=== PATIENT | female | born 1955 | race Caucasian/White ===

== ENCOUNTER → 2020-04-07 12:54 | Outpatient (BNVA) | payer MEDICARE, SELFPAY | PROVIDERS: Family Provider Family Medicine; PCP Family Medicine; Visit Provider Internal Medicine | DX: M32.9 Systemic lupus erythematosus, unspecified (principal); G43.909 Migraine, unspecified, not intractable, without status migrainosus; M35.00 Sjogren syndrome, unspecified; Z79.899 Other long term (current) drug therapy | CPT/HCPCS: 99213 ==

== ENCOUNTER → 2020-11-08 13:23 | Outpatient (BNVA) | payer MEDICARE, SELFPAY | PROVIDERS: Family Provider Family Medicine; PCP Family Medicine; Visit Provider Internal Medicine | DX: M32.9 Systemic lupus erythematosus, unspecified (principal); M35.00 Sjogren syndrome, unspecified; Z79.899 Other long term (current) drug therapy | CPT/HCPCS: 36415; 80053; 85025; 85651; 86140; 86160; 93005; 99214 ==

== ENCOUNTER 2020-11-08 14:52 | Outpatient (CLI) | payer MEDICARE, SELFPAY ==
[2020-11-08 15:10] LABS: Basophils % 0.6 %; Eosinophils # 0.1 10^3/uL (0.0-0.8); Eosinophils % 2.1 %; Hemoglobin 13.6 g/dL (11.5-15.3); Lymphocytes # 1.6 10^3/uL (0.8-4.8); Mean Corpuscular HGB Conc 32.4 g/dL (30.0-36.0); Mean Corpuscular Hemoglobin 28.8 pg (28.0-34.0); Mean Platelet Volume 10.4 fL (7.4-10.4); Monocytes # 0.5 10^3/uL (0.2-0.9); Monocytes % 9.5 %; Neutrophils # 3.14 10^3/uL (1.8-7.7); Neutrophils % 58.6 %; Nucleated Red Blood Cells % 0 %; Platelet Count 252 10^3/cmm (130-400); Red Blood Count 4.72 10^6/uL (4.1-5.3); Red Cell Distribution Width 12.1 % (12.1-15.1); White Blood Count 5.4 10^3/uL (4.0-10.0)
--- NOTE | 2020-11-08 15:25 | ECG_ITS ---
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 Measurements Intervals Elkin Rate: 70 P: 68 RI: 143 QRS: -14 QRSD: 85 T: 66 QT: 390 QTc: 423 Interpretive Statements SINUS RHYTHM LOW QRS VOLTAGE IN PRECORDIAL LEADS [QRS DEFLECTION < 1.0 mV IN CHEST LEADS] MODERATE ST DEPRESSION [0.05+ mV ST DEPRESSION] Compared to ECG 01/24/2019 20:56:02 Low QRS voltage now present ST (T wave) deviation now present Sinus bradycardia no longer present Electronically Signed On 11-09-2020 6:08:17 VIDEO GAME DEVELOPER by Katarzyna Fairchild M.D. [email or web address]/[id number] mi
[2020-11-08 15:33] LABS: Alanine Aminotransferase 23 U/L (0-33); Albumin Level 4.5 g/dL (3.5-5.2); Alkaline Phosphatase 101 IU/L (35-105); Anion Gap 15.8 (5-19); Aspartate Amino Transferase 19 U/L (0-32); Blood Urea Nitrogen 13 mg/dL (8-23); C Reactive Protein 2.2 mg/L (0.0-4.9); Carbon Dioxide 28 mmol/L (22-29); Chloride 101 mmol/L (98-107); Complement C3 144 mg/dL (90-180); Globulin 3.1 g/dL (1.3-4.6); Glucose 97 mg/dL (65-115); Osmolality Calculated 292 mOsm/kg (285-295); Potassium 3.8 mmol/L (3.5-5.1); Sodium 141 mmol/L (136-145); Total Bilirubin 0.4 mg/dL (0.15-1.2); Total Protein 7.6 g/dL (6.6-8.7)
[2020-11-08 16:14] LABS: Erythrocyte Sedimentation Rate 24 mm/hr (0-15)
== END 2020-11-08 14:53 | disposition home or self-care (01) ==
PROVIDERS: PCP Family Medicine; Visit Provider Internal Medicine
DX: M35.00 Sjogren syndrome, unspecified (principal)
CPT/HCPCS: 36415; 80053; 85025; 85651; 86140; 86160; 93005

== ENCOUNTER 2021-01-26 12:41 | Outpatient (CLI) | payer MEDICARE, SELFPAY ==
[2021-01-26 12:51] VITALS: BMI 24.6
--- NOTE | 2021-01-26 12:52 | ECG_ITS ---
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 Interpretive Statements NAME OF STUDY: DOBUTAMINE STRESS ECHOCARDIOGRAM INDICATION: Abnormal EKG PROCEDURE: At the baseline, the blood pressure was 145/78 mm Hg with a heart rate of 57 bpm. The electrocardiogram showed sinus bradcardia, normal axis and non specific ST depression. The dobutamine was infused over a period of 10 minutes and 48 seconds. The maximum heart rate obtained was 146 (94 % of the maximum predicted heart rate). The blood pressure at that time was 97/61 mmHg. The patient did not have any chest pain. 1/2-[address] depression noted in infero-lateral genao with the dobutamine infusion.The physical examination remained unchanged. No arrhythmias were seen on the monitor. During the recovery phase, the patient did not have any specific symptoms. The blood pressure at the end of the recovery phase was 123/88 mm Hg with a heart rate of 76 beats per minute. CONCLUSION: 1. Equivocal EKG changes with dobutamine infusion given baseline ST changes. 2. Baseline hypertension with normal response to dobutamine infusion. 3. Functional capacity could not be assessed. 4. Echocardiographic portion of the study to be reported separately. Electronically Signed On 01-30-2021 23:06:52 CDT by Katarzyna Fairchild M.D. [id number]
--- NOTE | 2021-01-26 13:03 | USCV_ITS ---
Daija Long Age: 65 Gender: F : 1955 Exam Date: 01/26/2021 13:31 Ordering Phys: Katarzyna Fairchild MD ([email or web address]) Technologist: Exam [place] [facility] [place]: abnormal ekg Rhythm: Sinus Patient History: Cardiac Medications: Medications in past 24 hours: Contrast: Stress Results Protocol: Dayne Total dose(mL): Exercise Duration (min:sec): 10:48 METS: Resting HR: 60 Resting BP: 145 / 78 Peak HR: 146 Peak BP: 187 / 100 Max Predicted HR: 155 94 % Max Predicted HR Target HR: 132 Double Product: [id number] Stress Summary: The patient's target heart rate was achieved BP Response: Normal Reason for Termination: Test terminated after reaching target heart rate (85% max predicted) Cardiac Symptoms: None ECG Analysis Resting ECG: Stress ECG: Arrhythmia: MEASUREMENTS (Male/Female) Normal Values FINDINGS 1. At the baseline, the patient's blood pressure was 145/78 mm Hg with a heart rate of 60 beats per minute. 2. The Dobutamine was infused over 10 minutes and 48 seconds. The maximum heart rate obtained was 146 beats per minute. The patient attained 94 % of the maximum predicted heart rate. The blood pressure at the end of the infusion was 187/100 mmHg. Patient did not have any chest pain or any significant electrocardiogram changes with the Dobutamine infusion. The physical examination remained unchanged. No arrhythmias were seen on the monitor. 3. At the baseline, the patient's echocardiogram revealed normal cardiac chamber sizes with normal LV ejection fraction of 65%. Segmental wall motion analysis revealed no regional wall motion abnormality. There were no intracardiac masses. No significant pericardial effusion. Aortic root appears to be upper limits of normal size. 4. With the low and the peak Dobutamine infusion, there was good augmentation of all the segments with no Dobutamine-induced wall motion abnormalities. 5. During the recovery phase, the patient did not have any symptoms or any EKG changes. 6. The echocardiogram during the recovery phase also did not reveal any new changes. CONCLUSIONS 1. Equivocal electrocardiogram response to Dobutamine infusion given baseline changes. 2. Normal echocardiographic response to Dobutamine infusion. 3. No Dobutamine-induced chest pain or cardiac arrhythmia. 4. Clinical correlation is recommended. Katarzyna Fairchild MD (Electronically Signed) Final Date: 30 Jan 2021 23:08 S
[2021-01-26] MEDS: DOBUTtamine 200 MG in sodium chloride 0.9% 34 ML 10 MG IV (13:32)
[2021-01-26] MEDS: atropine 0.1 mg/mL Syr 10 mL 0.5 MG IVP (13:43)
[2021-01-26] MEDS: metoprolol tartrate 1 mg/1 mL SDV 5 mL 5 MG IVP (13:48)
[2021-01-26 13:56] VITALS: BP 123/88; PULSE 77
== END 2021-01-26 12:42 | disposition home or self-care (01) ==
PROVIDERS: Visit Provider Internal Medicine Cardiovascular Disease
DX: R94.31 Abnormal electrocardiogram [ECG] [EKG] (principal); I10 Essential (primary) hypertension
CPT/HCPCS: 93017; 93350; J0461; J1250; J3490; J7050

== ENCOUNTER 2021-02-07 11:28 | Outpatient (CLI) | payer MEDICARE, SELFPAY ==
--- NOTE | 2021-02-07 11:45 | USCV_ITS ---
Mercedes Daija Age: 65 Gender: F : 1955 Exam Date: 02/07/2021 11:56 Ordering Phys: Katarzyna Fairchild MD ([email or web address]) Technologist: Exam Location: [facility] [place] Indication: CHEST PAIN BP: 127 / 80 HR: 61 Rhythm: Sinus Technical Quality: Adequate MEASUREMENTS (Male / Female) Normal Values 2D ECHO LV Diastolic Diameter PLAX 3.3 cm 4.2 - 5.9 / 3.9 - 5.3 cm LV Systolic Diameter PLAX 1.9 cm IVS Diastolic Thickness 0.8 cm 0.6 - 1.0 / 0.6 - 0.9 cm IVS Systolic Thickness 1.4 cm LVPW Diastolic Thickness 0.9 cm 0.6 - 1.0 / 0.6 - 0.9 cm LVPW Systolic Thickness 1.2 cm LVOT Diameter 2.0 cm LV Ejection Fraction 2D Teich 69.4 % LV Ejection Fraction MOD 2C 73.6 % LV Ejection Fraction 2C AL 73.7 % LA Diameter 3.1 cm LA Width 3.1 cm LA Height 4.5 cm RA Width 3.1 cm RA Height 3.3 cm Aorta at Sinotubular Diameter 2.1 cm M-MODE LV Diastolic Diameter MM 3.9 cm 4.2 - 5.9 / 3.9 - 5.3 cm LV Systolic Diameter MM 3.2 cm LV Ejection Fraction MM Teich 35.6 % IVS Diastolic Thickness MM 1.2 cm 0.6 - 1.0 / 0.6 - 0.9 cm IVS Systolic Thickness MM 1.6 cm LVPW Diastolic Thickness MM 1.1 cm 0.6 - 1.0 / 0.6 - 0.9 cm LVPW Systolic Thickness MM 1.5 cm RV Diastolic Diameter MM 1.8 cm Aortic Annulus Diameter 2.9 cm LA Ao Ratio MM 1.1 MV E Point Septal Separation 0.7 cm DOPPLER AV Peak Velocity 84.0 cm/s LVOT Peak Velocity 71.0 cm/s AV Area Cont Eq vti 3.2 cm squared AV Area Cont Eq pk 2.6 cm squared MV Area PHT 4.0 cm squared Mitral E to A Ratio 1.0 MV E' Velocity 33.4 cm/s Mitral E to MV E' Ratio 6.7 Mitral E to LV E' Lateral Ratio 6.2 Mitral E to LV E' Septal Ratio 7.2 TR Peak Velocity 206.0 cm/s TR Peak Gradient 17.0 mmHg TV Peak E Velocity 76.0 cm/s Right Atrial Pressure 3.0 mmHg Pulmonary Artery Systolic Pressu 20.0 mmHg FINDINGS Left Ventricle Normal left ventricular size, systolic function and wall thickness, with no regional wall motion abnormalities. Left ventricular ejection fraction is estimated at 70 %. Normal diastolic function. Right Ventricle Normal right ventricular size and systolic function. Right ventricular systolic pressure 20 mmHg. Right Atrium Normal right atrial size. Left Atrium Normal left atrial size. Mitral Valve Structurally normal mitral valve. No mitral valve stenosis. Trace mitral valve regurgitation. Aortic Valve Structurally normal trileaflet aortic valve. No aortic valve stenosis. No aortic valve regurgitation. Tricuspid Valve Structurally normal tricuspid valve. Trace tricuspid valve regurgitation. Pulmonic Valve Pulmonic valve not well visualized. No pulmonary valve stenosis. No pulmonary valve regurgitation. Pericardium No pericardial effusion. Aorta Normal size aortic root and proximal ascending aorta. Normal sized inferior vena cava. CONCLUSIONS 1. Normal left ventricular size, systolic function and wall thickness, with no regional wall motion abnormalities. Left ventricular ejection fraction is estimated at 70 %. Normal diastolic function. 2. No significant valvular abnormality. 3. Normal pulmonary artery pressure. 4. No pericardial effusion. 5. No prior similar studies to compare. Katarzyna Fairchild MD (Electronically Signed) Final Date: 13 Feb 2021 14:20 S
== END 2021-02-07 11:29 | disposition home or self-care (01) ==
LOC: US 11:29
PROVIDERS: Visit Provider Internal Medicine Cardiovascular Disease
DX: I08.1 Rheumatic disorders of both mitral and tricuspid valves (principal); R94.31 Abnormal electrocardiogram [ECG] [EKG]
CPT/HCPCS: 93306

== ENCOUNTER 2021-04-18 14:41 | Outpatient (CLI) | payer MEDICARE, SELFPAY ==
--- NOTE | 2021-04-18 15:00 | USCV_ITS ---
Daija Long Age: 65 Gender: F : 1955 Exam Date: 04/18/2021 15:00 Ordering Phys: Katarzyna Fairchild MD ([email or web address]) Technologist: Kaley Castañeda [place] [facility] [place] FACIAL DROOPING Risk Factors: Previous Vascular Surgery: Right Brachial BP: / Left Brachial BP: / Right Left Velocity (cm/s) Spectral Plaque Velocity (cm/s) Spectral Plaque Syst/Diast Broadening Syst/Diast Broadening 146.90/20.50 Prox CCA 118.00/ 33.10 100.00/28.20 Mid CCA 116.90/ 36.40 103.40/37.60 Distal CCA 108.10/ 35.30 77.80/ 28.20 Prox ICA 51.30 / 17.10 109.10/47.30 Mid ICA 77.80 / 30.80 72.40/ 29.30 Distal ICA 80.60 / 37.70 117.00 ECA 146.00 0.74 ICA/CCA 0.68 Antegrade Vertebral Antegrade 41.00/ 15.40 cm/s 54.40/ 22.50 cm/s Tri Subclavian Tri 88.20 79.20 CONCLUSIONS Right ICA stenosis <50%. Left ICA stenosis <50%. Normal antegrade Doppler flow noted in the right vertebral artery. Normal antegrade Doppler flow noted in the left vertebral artery. Bi Holliday MD (Electronically Signed) Final Date: 18 April 2021 17:20 S
== END 2021-04-18 14:42 | disposition home or self-care (01) ==
LOC: RAD 14:46
PROVIDERS: PCP Family Medicine; Visit Provider Internal Medicine Cardiovascular Disease
DX: I65.23 Occlusion and stenosis of bilateral carotid arteries (principal); M32.9 Systemic lupus erythematosus, unspecified; M35.00 Sjogren syndrome, unspecified; R29.810 Facial weakness; Z79.899 Other long term (current) drug therapy; R53.83 Other fatigue
CPT/HCPCS: 93880; 99213; 99214

== ENCOUNTER 2021-05-11 09:21 | Outpatient (CLI) | payer MEDICARE, SELFPAY ==
--- NOTE | 2021-05-11 09:24 | US_ITS ---
WS: [id number] ULTRASOUND ABDOMEN LIMITED CLINICAL INFORMATION: R10.11 - Right upper quadrant pain COMPARISON: None. FINDINGS: Liver Size: Normal. Craniocaudal length: 12.6 cm. Echogenicity: Normal. Surface nodularity: None. Mass (size and location): None. Bile ducts Intrahepatic ducts: Normal. Common bile duct diameter: 0.29 cm. Gallbladder Normal. Gallstones: None. Gallbladder sludge: None. Gallbladder wall thickening: None. Pericholecystic fluid: None. Sonographic Dennison sign: Absent. Pancreas Normal as visualized. Right kidney: Normal. Hydronephrosis: None. Size: 10.5 cm x 4.0 cm x 3.8 cm. Abdominal aorta and IVC Visualized portions are normal. Ascites: None. US/US gall bladder [id number] IMPRESSION: Normal ultrasound
== END 2021-05-11 09:22 | disposition home or self-care (01) ==
LOC: US 09:22
PROVIDERS: PCP Family Medicine; Visit Provider Surgery
DX: R10.11 Right upper quadrant pain (principal)
CPT/HCPCS: 76705

== ENCOUNTER 2021-06-08 09:45 | Outpatient (CLI) | payer MEDICARE, SELFPAY ==
--- NOTE | 2021-06-08 10:00 | NM_ITS ---
WS: [id number] NUCLEAR MEDICINE HIDA SCAN CLINICAL INFORMATION: R10.9 - Unspecified abdominal pain TECHNIQUE: Following intravenous administration of 4.0 mCi of technetium 99m mebrofenin, images of th e abdomen were obtained over the course of 60 minutes. Next, gallbladder ejection fraction was determ ined by obtaining preprandial and one-hour postprandial images of the gallbladder following oral gely stion of Ensure. COMPARISON: Ultrasound May 11, 2021 FINDINGS: Normal hepatic uptake at 5 minutes. Hepatomegaly. Normal common bile duct activity. Gallbladder is vi sualized by 20 minutes. No evidence of acute cholecystitis. Normal small bowel activity. Gallbladder ejection fraction 79% within normal limits. No evidence of chronic cholecystitis. NM/NM hepatobiliary w phar* [id number] IMPRESSION: 1. No evidence of acute or chronic cholecystitis. 2. Gallbladder ejection fraction 79% within normal limits.
== END 2021-06-08 09:46 | disposition home or self-care (01) ==
LOC: NM 09:47
PROVIDERS: PCP Family Medicine; Visit Provider Surgery
DX: R10.9 Unspecified abdominal pain (principal)
CPT/HCPCS: 78227; A9537

== ENCOUNTER 2021-06-22 09:20 | Day surgery (SDC) | payer MEDICARE, SELFPAY ==
[2021-06-20 13:37] VITALS: BMI 24.4
--- NOTE | 2021-06-22 09:58 | ANES.PREANE2 ---
Pre-Anesthetic Assessment Pre-Anesthetic Assessment: Height/Weight: Height 1.65 m Weight 66.678 kg Preop Diagnosis: Family history of colon cancer, bleeding per rectum Proposed Procedure: Operation Date: 06/22/21 11:00 Proposed Procedures p Colonoscopy 79194 z86.010(Bilateral) - Erik Knight MD Was Beta Mamta taken within 24 hours: N/A Was Clonidine taken within 24 hours: N/A Social: Social History: No alcohol and No tobacco Exam: Pre-Anes Outpt Exam: alert, oriented x 3, clear to auscultation bilaterally and regular rate & rhythm Airway: Submandibular: WNL Cervical ROM: WNL MP: 2 Dentition: Full GI: GI: GERD Metabolic: Metabolic: Hyperlipidemia Musc/skel: Comments: SLE/Schogren's Anesthetic Plan: ASA status: 2 Anesthesia: MAC Risk of > 500 ml blood loss (7ml/kg in children): No PFSH Anesthesia PFSH: Medical History (Updated 04/11/21 @ 07:37 by Mikki Mcknight DO) Family history of coronary artery disease in brother Fibromyalgia GERD (gastroesophageal reflux disease) Lupus Migraine Sjogrens syndrome Sjogrens syndrome Surgical History (Updated 04/08/21 @ 10:31 by Mikki Mcknight DO) History of colonoscopy with polypectomy Family History Mother Stroke Father CHF (congestive heart failure) Other CAD (coronary artery disease) Diabetes FH: CABG (coronary artery bypass surgery) Sjogrens syndrome Stented coronary artery Social History Smoking and tobacco status: never smoked Alcohol intake: never History of recent travel: No Data Anesthesia Cardiac Studies: No Data to Display
[2021-06-22 10:05] VITALS: BP 156/88; PULSE 64; RESP 18; TEMP 36.1; O2SAT 98
[2021-06-22] MEDS: sodium chloride 0.9% 1,000 ML 30 ML IV (10:13)
--- NOTE | 2021-06-22 10:43 | W.PM.OPSFHP ---
Same Day Surgery H&P Indication for Procedure/HPI DATE OF PROCEDURE: June 22, 2021 CHIEF COMPLAINT/INDICATIONFOR SURGICAL PROCEDURE: Bloating PREOP DIAGNOSIS: Family history of colon cancer, bleeding per rectum PLANNED PROCEDRUE: Operation Date: 06/22/21 11:00 Proposed Procedures p Colonoscopy [id number] z86.010(Bilateral) - Erik Knight MD This is a pleasant 65 years old female patient well-known to me from previous clinical encounter as she did undergo an EGD and colonoscopy back in 2019 that showed GERD, gastritis and normal colon. She reports that she has been having issues with her bowels in the form of bloating especially when she has greasy food and she reports that she had her brother with history of colon cancer at the age of 50. She comes today that she is concerned as she did encounter some blood in stool and also concerned that she may have an underlying hemorrhoids. 06/22/2021 Patient comes today for colonoscopy. ROS All systems have been reviewed negative except as per the above per problem list Medications/Allergies* Home Medications Medication Instructions Recorded Confirmed Type aspirin 81 mg tablet,delayed 81 mg PO DAILY 04/07/20 06/20/21 History release Allergies/Adverse Reactions Allergy/AdvReac Type Severity Reaction Status Date / Time Sulfa (Sulfonamide Allergy Unknown ALGY-Rash Verified 06/22/21 10:43 Antibiotics) Penicillins AdvReac Unknown ALGY-Rash Verified 06/22/21 10:43 Current Medications: Generic Name Dose Route Start Last Admin Trade Name Freq PRN Reason Stop Dose Admin Sodium Chloride 1,000 mls @ 30 mls/hr 06/22/21 09:45 06/22/21 10:13 Sodium Chloride 0.9% IV 06/23/21 09:44 30 mls/hr .Q24H LIAM Administration Pertinent History/Comorbid Conditions* Medical History (Updated 04/11/21 @ 07:37 by Mikki Mcknight DO) Family history of coronary artery disease in brother Fibromyalgia GERD (gastroesophageal reflux disease) Lupus Migraine Sjogrens syndrome Sjogrens syndrome Surgical History (Updated 04/08/21 @ 10:31 by Mikki Mcknight DO) History of colonoscopy with polypectomy Family History (Updated 12/30/20 @ 13:48 by Alicia Paez RN) Sjogrens syndrome Stented coronary artery Diabetes CAD (coronary artery disease) CHF (congestive heart failure) Father FH: CABG (coronary artery bypass surgery) Stroke Mother Social History Smoking and tobacco status: never smoked Alcohol intake: never History of recent travel: No Pertinent Exam Findings alert, oriented x 3, clear to auscultation bilaterally, regular rate & rhythm and procedure specific exam findings (Abdominal examination nontender nondistended soft) Recommendations Surgery/Procedure today (Colonoscopy with possible biopsy) Coding Level of Care Code Acute Parenting Skills Instructor for Shanta Quintero
[2021-06-22 11:28] VITALS: BP 100/64; PULSE 63; RESP 14; TEMP 36.3; O2SAT 97
[2021-06-22 11:37] VITALS: BP 95/63; PULSE 62; RESP 18; TEMP 36.5; O2SAT 94
--- NOTE | 2021-06-22 11:53 | ANE.PACU2 ---
Inpatient post-anesthesia follow up: Airway intact: Yes Vital signs: Temperature 97.7 F Pulse Rate 62 Respiratory Rate 18 Blood Pressure 95/63 Pulse Oximetry 94 Oxygen Delivery Me thod Room Air Oxygen Flow Rate Fraction of Inspir ed Oxygen Hydration adequate: Yes Mental status: Baseline
== END 2021-06-22 12:05 | disposition home or self-care (01) ==
PROVIDERS: PCP Family Medicine; Visit Provider Surgery
PROC: 0DJD8ZZ Inspection of Lower Intestinal Tract, Via Natural or Artificial Opening Endoscopic (ICD-10-PCS; CPT 45378; principal; 2021-06-22 11:00)
DX: K62.5 Hemorrhage of anus and rectum (principal); Z86.010 Personal history of colon polyps; R14.0 Abdominal distension (gaseous); M79.7 Fibromyalgia; K21.9 Gastro-esophageal reflux disease without esophagitis; M35.00 Sjogren syndrome, unspecified; Z82.49 Family history of ischemic heart disease and other diseases of the circulatory system; Z83.3 Family history of diabetes mellitus; E78.5 Hyperlipidemia, unspecified
CPT/HCPCS: 45378; 96360; 96361; J2704; J7030

== ENCOUNTER → 2022-05-31 10:36 | Outpatient (BNVA) | payer MEDICARE, SELFPAY | PROVIDERS: PCP Family Medicine; Visit Provider Surgery | DX: Z09 Encounter for follow-up examination after completed treatment for conditions other than malignant neoplasm (principal) | CPT/HCPCS: 99213 ==

== ENCOUNTER → 2023-02-07 15:38 | Outpatient (BNVA) | payer MEDICARE, SELFPAY | PROVIDERS: PCP Family Medicine; Visit Provider Internal Medicine | DX: R53.83 Other fatigue (principal); Z79.899 Other long term (current) drug therapy; M35.00 Sjogren syndrome, unspecified; M32.9 Systemic lupus erythematosus, unspecified | CPT/HCPCS: 36415; 80053; 82955; 85025; 85651; 86140; 86160; 86162; 86235; 86255; 86376; 99214 ==

== ENCOUNTER → 2023-04-06 12:46 | Outpatient (BNVA) | payer MEDICARE, SELFPAY | PROVIDERS: PCP Family Medicine; Visit Provider Family Medicine | DX: Z13.6 Encounter for screening for cardiovascular disorders (principal); Z11.59 Encounter for screening for other viral diseases; E55.9 Vitamin D deficiency, unspecified | CPT/HCPCS: 80061; 82306; 86803 ==

== ENCOUNTER 2023-04-09 15:11 | Outpatient (CLI) | payer MEDICARE, SELFPAY ==
--- NOTE | 2023-04-09 15:30 | XR_ITS ---
WS: [id number] DEXA (DUAL ENERGY X-RAY ABSORPTIOMETRY) Bone mineral density was performed using a fotobabble machine. HISTORY: postmenopausal COMPARISON: None available. Lumbar spine BMD (L1-L4): 0.994 g/cm2 T score: -1.6 Z score: 0.4 Total hip BMD: Left: 0.676 g/cm2. T score: -2.6 Z score: -1.1 Right: 0.695 g/cm2. T score: -2.5 Z score: -0.9 10 year probability of a major osteoporotic fracture is 34.9%. XR/XR DEXA axial skeleton* [id number] IMPRESSION: OSTEOPOROSIS based upon the WHO classification for females.
== END 2023-04-09 15:12 | disposition home or self-care (01) ==
PROVIDERS: PCP Family Medicine; Visit Provider Family Medicine
DX: Z78.0 Asymptomatic menopausal state (principal); M81.0 Age-related osteoporosis without current pathological fracture
CPT/HCPCS: 77080; 80061; 82306; 86803

== ENCOUNTER → 2023-04-30 09:46 | Outpatient (BNVA) | payer MEDICARE, SELFPAY | PROVIDERS: PCP Family Medicine; Visit Provider Internal Medicine | DX: K64.9 Unspecified hemorrhoids (principal); M32.9 Systemic lupus erythematosus, unspecified; M35.00 Sjogren syndrome, unspecified; Z79.899 Other long term (current) drug therapy; M81.0 Age-related osteoporosis without current pathological fracture | CPT/HCPCS: 99214 ==

== ENCOUNTER → 2023-05-07 13:57 | Outpatient (BNVA) | payer MEDICARE, SELFPAY | PROVIDERS: PCP Family Medicine; Visit Provider Surgery | DX: K64.9 Unspecified hemorrhoids (principal) | CPT/HCPCS: 99203; 99213 ==